=== PATIENT | male | born 1980 | race Caucasian/White ===

== ENCOUNTER 2021-03-17 09:32 | Outpatient (CLI) | payer OTHER, SELFPAY ==
--- NOTE | 2021-03-17 09:15 | DI.RAD_ITS ---
Exam(s) XR KNEE LT 3V AP,LAT,LISETTE EXAM: XR KNEE LT 3V AP,LAT,LISETTE CLINICAL HISTORY: knee pain. TECHNIQUE: 2D digital imaging was performed. COMPARISON: No exams were available for comparison FINDINGS: BONES: No acute fracture is present. No bony destructive lesion is seen. JOINTS: Minimal periarticular spurring the knee is normally aligned. No joint effusion is seen. SOFT TISSUE: Normal. IMPRESSION: Minimal degenerative changes. DATA REPOSITORY: RADIATION DOSE DELIVERED:
== END 2021-03-17 09:33 | disposition home or self-care (01) ==
LOC: DIORS 09:32
PROVIDERS: PCP Physician Assistant; Referring Provider Physician Assistant; Visit Provider Physician Assistant Surgical
DX: M25.562 Pain in left knee (principal)
CPT/HCPCS: 73562

== ENCOUNTER 2021-05-27 00:49 | Outpatient (CLI) | payer OTHER, SELFPAY ==
--- NOTE | 2021-05-27 07:00 | DI.MRI_ITS ---
Exam(s) MR LOWER JOINT LT WO EXAM: MR LOWER JOINT LT WO CLINICAL HISTORY: Acute meniscus tear lt knee, S83.242A TECHNIQUE: Multiplanar multisequence MRI of the left knee was performed. COMPARISON: CR XR KNEE LT 3V AP,LAT,LISETTE from 03/17/2021 FINDINGS: Plain films of the left knee performed 03/17/2021 reviewed. EFFUSION: There is a moderate-sized joint effusion.. There is no Friedman cyst in the medial popliteal fossa. MARROW:There is no evidence of fracture, bone contusion, nor osteochondral defects.. There are no si gnificant osseous lesions. PATELLOFEMORAL COMPARTMENT: The quadriceps tendon is intact. The patellar ligament is intact. There is no significant thinning of the retropatellar cartilage. No evidence of fissure nor signific ant chondral defect. No osteochondral defect at this level.There is no intraosseous signal to sugges t recent patellar dislocation. There are no patellar retinacular tears. CRUCIATE LIGAMENTS: The anterior cruciate ligament is intact.The posterior cruciate ligament is intac t. MEDIAL COMPARTMENT/MEDIAL MENISCUS: There is a complex tear of the medial meniscus.This involves pred ominantly the posterior horn but extends towards the anterior horn. There are both horizontal and ob lique components of the tear. The root is also involved. Tearing extends to the meniscocapsular elenita ction although there does not appear to be a significant tear of the MCL. There are mild degenerative changes in the hyaline cartilage of the medial condyle. There are no ost eochondral defects. No prominent subarticular bone edema. MEDIAL COLLATERAL LIGAMENT: Intact LATERAL COMPARTMENT/LATERAL MENISCUS: There is no evidence of lateral meniscal tear.There are no cindy dral defects, osteochondral defects, subarticular marrow edema, nor osteophytes evident. ILIOTIBIAL BAND: Intact LATERAL COLLATERAL LIGAMENT COMPLEX: The fibular collateral ligament is intact. The biceps femoris t endon is intact.There is significant fluid at the musculotendinous junction of the popliteus as well as some fluid within the popliteus tendon sheath but no high-grade tear. IMPRESSION: 1. There is complex tear of the medial meniscus as described above, predominantly involving the poste rior horn but extending towards the anterior horn. Mild degenerative changes are noted in the medial compartment. No osteophytes. No osteochondral defects there are no tears of the lateral meniscus a nd minimal degenerative changes in the lateral compartment. 2. Cruciate and collateral ligaments are intact although there does appear to be some fluid within th e musculotendinous junction and tendon sheath of the popliteus component of the lateral collateral li gament complex. Fibular collateral ligament itself as well as the biceps femorals component of the L CL complex are intact. MCL proper is intact. 3. Patellofemoral compartment appears unremarkable. 4. Moderate-sized joint effusion. No Friedman cyst. DATA REPOSITORY:
== END 2021-05-27 01:09 ==
PROVIDERS: PCP Physician Assistant; Visit Provider Student in an Organized Health Care Education/Training Program
DX: M25.562 Pain in left knee (principal); S83.232A Complex tear of medial meniscus, current injury, left knee, initial encounter; M25.462 Effusion, left knee; X58.XXXA Exposure to other specified factors, initial encounter
CPT/HCPCS: 73721

== ENCOUNTER 2021-06-12 02:06 | Outpatient (CLI) | payer OTHER, SELFPAY ==
[2021-06-12 16:52] LABS: COVID-19 PCR Negative (Negative)
[2021-06-13 11:43] LABS: Source Nasal/Nares
== END 2021-06-12 02:07 | disposition home or self-care (01) ==
LOC: LBO 02:06
PROVIDERS: PCP Physician Assistant; Visit Provider Student in an Organized Health Care Education/Training Program
DX: Z20.822 Contact with and (suspected) exposure to COVID-19 (principal); Z01.818 Encounter for other preprocedural examination
CPT/HCPCS: 87635

== ENCOUNTER 2021-07-15 02:27 | Outpatient (CLI) | payer OTHER, SELFPAY ==
[2021-07-15 13:09] LABS: Source Nasal/Nares
[2021-07-15 22:43] LABS: COVID-19 PCR Negative (Negative)
== END 2021-07-15 02:28 | disposition home or self-care (01) ==
PROVIDERS: PCP Physician Assistant; Visit Provider Student in an Organized Health Care Education/Training Program
DX: Z20.822 Contact with and (suspected) exposure to COVID-19 (principal)
CPT/HCPCS: 87635

== ENCOUNTER 2021-07-16 08:39 | Day surgery (SDC) | payer OTHER, SELFPAY ==
[2021-07-16] VITALS (7 sets, daily range): BP systolic 97–122; BP diastolic 60–79; PULSE 76–84; RESP 14–16; TEMP 36.5–36.7; O2SAT 96–98; BMI 31.5
[2021-07-16] MEDS: Lactated Ringers 1,000 ML 100 ML IV (09:31)
--- NOTE | 2021-07-16 10:12 | W.ANESPRE ---
General Info Date of Service Date Performed: 07/16/21 Height: 5 ft 10 in Weight: 99.6 kg Body Mass Index (BMI): 31.5 Surgical Procedure: Operation Date: 07/16/21 11:40 Proposed Procedure Side Surgeon p Knee Arthroscopy,Partial Medial Mensiectomy,any indicated meniscal, chondral and synovial surgery Left Albert Garcia MD Meds Allergies and Home Medications Allergies Allergy/AdvReac Type Severity Reaction Status Date / Time clindamycin AdvReac Intermediate rash Verified 07/16/21 09:02 Home Medication Medication Instructions Recorded dextroamphetamine 10 mg tablet 10 mg PO DAILY 03/17/21 dextroamphetamine 15 mg tablet 15 mg PO DAILY 03/17/21 loratadine 10 mg tablet (Allergy 10 mg PO DAILY 03/17/21 Relief (loratadine)) omeprazole 20 mg capsule,delayed 20 mg PO DAILY 03/17/21 release aspirin 81 mg tablet,delayed 81 mg PO DAILY 14 Days #14 tab 07/16/21 release naproxen 250 mg tablet 250 - 500 mg PO BID PRN #40 tab 07/16/21 oxycodone 5 mg tablet 5 - 10 mg PO Q4H PRN #18 tab MDD 07/16/21 30 mg Current Visit Medications: Current Medications Generic Name Dose Route Start Last Admin Trade Name Freq PRN Reason Stop Dose Admin Ringer's Solution 1,000 mls @ 100 mls/hr 07/16/21 06:00 07/16/21 09:31 IV 07/30/21 23:59 100 mls/hr INFUSION [place] Administration Cefazolin Sodium/Dextrose 2 gm in 50 mls @ 100 mls/hr 07/16/21 06:00 Ancef Duplex IVPB 07/16/21 23:59 PREOP [place] IV Miscellaneous Supplies 1 each 07/16/21 06:00 Iv Access IV 07/30/21 23:59 DIRECTED [place] Naproxen 250 - 500 mg 07/16/21 07:22 Naproxen 500 Mg Tab PO BID PRN PRN Oxycodone HCl 5 - 10 mg 07/16/21 07:22 Oxycodone 5 Mg Tab PO Q4H PRN PRN Sodium Chloride 0 ml 07/16/21 06:00 Normal Saline Flush 10 Ml Syr IV 07/30/21 23:59 PRN PRN Sodium Chloride 0 ml 07/16/21 06:00 Normal Saline 10 Ml Vial IJ 07/30/21 23:59 DIRECTED PRN Sterile Water 0 ml 07/16/21 06:00 Water,Injection,Sterile 10 Ml Vial IJ 07/30/21 23:59 DIRECTED PRN PFSH Active Problems Active Problems: Problem Status Onset Code Patellofemoral syndrome of left knee M22.2X2 Right lateral epicondylitis M77.11 Acute medial meniscus tear of left knee 05/10/21 S83.242A Medical History Medical History ADD (attention deficit disorder) Long-term current use of stimulant ADD (attention deficit disorder) Surgical History Surgical History (Updated 07/16/21 @ 09:03 by Tessie Kingsley) H/O: vasectomy History of carpal tunnel surgery of left wrist Tobacco Smoking/Tobacco Use Status: Current every day Tobacco Type: smokeless tobacco Alcohol Alcohol Intake: current Alcohol intake frequency: a few times a week Substance Use Substance use: Never Substance use type: does not use Vital Signs and Lab Results Vital Signs Most Recent Vital Signs in EMR: Most Recent Vital Signs Temp Pulse Resp BP Pulse Ox 36.6 C 84 16 112/77 98 07/16/21 08:54 07/16/21 08:54 07/16/21 08:54 07/16/21 08:54 07/16/21 08:54 Lab Results Blood Type / Crossmatch: No Data to Display Complete Blood Count: No Data to Display Complete Metabolic Panel: No Data to Display Liver Function Panel: No Data to Display Coagulation Panel: No Data to Display Cardiac Panel: No Data to Display Arterial Blood Gas: No Data to Display Venous Blood Gas: No Data to Display Pancreas Panel: No Data to Display Thyroid Panel: No Data to Display Infectious Disease: Coronavirus (COVID-19)(PCR) Negative (Negative) 07/15/21 08:58 07/15/21 Coronavirus 2019 Source Nasal/Nares 07/15/21 08:58 07/15/21 Blood Cultures: No Data to Display Toxicology Panel: No Data to Display Anesthesia Assessment and Plan Anesthesia History Personal History: Other Family History: No Family History of Anesthesia Complications Exercise Tolerance Exercise Tolerance: Metabolic Equivalents>4 Pertinent Negatives Pertinent Negatives: No Symptoms of GERD, No Major Cardiovascular Symptoms or Complaints, No Major Pulmonary Symptoms or Complaints and No History of CVA/TIA Cardiac & Pulmonary Exam Cardiac Exam: Normal S1/S2 Heart Sounds Pulmonary Exam: Clear Bilateral Breath Sounds Implantable Cardiac Device Does patient have a Pacemaker or an ICD?: No Airway Exam Known Difficult Airway: No Mallampati Class: 2 Mouth Opening: Normal (> 3cm) Thyromental Distance: Greater than 3 cm Neck Range of Motion: Full ROM Neck Circumference: Normal Teeth Condition: Normal Dentition ASA Classification ASA Score: ASA 2 Emergency Case?: No NPO Status NPO Status: NPO Clears >2 hours, Solids >8 hours Anesthesia Plan Resuscitation Status: Full Code Anesthesia Technique: Spinal Anesthesia Airway Planned: Natural Airway Monitors Used: Standard Monitors
--- NOTE | 2021-07-16 12:00 | ROE_ITS ---
Operative Note Operative Note DATE OF PROCEDURE: 07/16/21 PRE-OP DIAGNOSIS: Left knee 1. Medial meniscus tear 2. Synovitis POST-OP DIAGNOSIS: same PROCEDURE: Left knee 1. Partial medial meniscectomy, CPT #32906 2. Greater than 2 compartment synovectomy, CPT #30506: Medial gutter plica, intercondylar, and patellofemoral SURGEON: Albert Garcia CALENDERING SUPERVISOR: None None ANESTHESIA TYPE: Local By Surgeon and Spinal Refer to Anesthesia Record ESTIMATED BLOOD LOSS: 5 PATHOLOGY: none sent TOURNIQUET TIME: 0 COMPLICATIONS: None Patient was transported to: PACU Patient's condition: stable Indications: Please see complete medical record for details. Findings: Exam under anesthesia: Full range of motion, no instability Arthroscopic findings: Complex medial meniscus tear involving the posterior body of root junction and posterior horn to the root. Stable root. Stable body anterior horn. Fibrinous tissue. Not amenable to repair. Moderate medial gutter synovitis and plica. Moderate patellofemoral and intercondylar synovitis as well. No significant cartilage lesion medial, lateral, or patellofemoral compartment. Intact lateral meniscus. Intact ACL PCL. Procedure Description: In the operating room, genral anesthesia was induced. The patient was positioned supine on the operating room table. All bony prominences were well- padded. Preoperative antibiotics were administered. The knee was prepped and draped in the usual sterile fashion. The correct patient, procedure, and side of the procedure were all verified prior to incision. Exam under anesthesia was performed. 10 cc of 50-50 lidocaine and bupivacaine containing epinephrine was infiltrated about the planned anteromedial and anterolateral knee arthroscopy portals. The portals were established and a complete diagnostic arthroscopy was performed with relevant findings detailed above. The mechanical shaver was used to remove pathologic synovium from the medial, intercondylar, and patellofemoral compartments. The mechanical shaver was also used to excise a medial prominent synovial plical fold. Using a combination of hand instruments including meniscal biters and a power shaver and working through the anteromedial and anterolateral compartments the medial meniscus meniscus was debrided of all torn tissue to a stable margin. Care was taken to preserve as much meniscus tissue was possible. The meniscal remnant was probed and found to have a stable margin, stable root, and no other tears Under direct arthroscopic visualization an 18-gauge needle was passed into the knee from superolateral into the suprapatellar pouch. The knee was copiously irrigated with arthroscopic fluid until there was a clear effluent before being drained of all fluid. The anteromedial and anterolateral portals were closed in 3-0 Monocryl in a buried interrupted fashion. 20 cc of lidocaine and bupivacaine with epinephrine containing 4 mg of morphine was infiltrated into the knee through the previously placed needle. Mastisol, Steri-Strips, and 4 x 4 gauze were applied over the incisions followed by sterile soft roll. The knee was then wrapped gently with an ANTOINE comressive bandage. The patient awoke from anesthesia without complication and was transferred to the recovery room in a stable condition.
[2021-07-16] MEDS: ceFAZolin 2 GM/50 ML BAG IVPB (12:07)
[2021-07-16] MEDS: Bupivacaine 0.25% Pres-Free 30 ML VIAL (12:43)
[2021-07-16] MEDS: MORPHine 4 MG/ML SYR (12:44)
--- NOTE | 2021-07-16 13:17 | PDOC.DSDIS_ITS ---
Discharge Plan Disposition Patient Disposition: HOME Condition: Stable Discharge Details Reason For Visit: Left knee surgery Attending Provider: Albert Garcia Primary Care Provider: Anastasia Hill V Home Meds and New Rx's Prescriptions: New aspirin 81 mg tablet,delayed release (DR/EC) 81 mg PO DAILY 14 Days Qty: 14 0RF naproxen 250 mg tablet 250 - 500 mg PO BID PRNQty: 40 0RF Rx Instructions: take with a meal oxycodone 5 mg tablet 5 - 10 mg PO Q4H MDD 30 mg PRN (Reason: moderate to severe pain) Qty: 18 0RF Continued loratadine [Allergy Relief (loratadine)] 10 mg tablet 10 mg PO DAILY 0RF omeprazole 20 mg capsule,delayed release(DR/EC) 20 mg PO DAILY 0RF dextroamphetamine 10 mg tablet 10 mg PO DAILY 0RF dextroamphetamine 15 mg tablet 15 mg PO DAILY 0RF Discontinued ibuprofen 200 mg capsule 200 mg PO Q6H PRN0RF Discharge Instructions Additional Instructions: Surgery: Left knee arthroscopy with partial medial meniscectomy and synovectomy Activity: Weight-bearing as tolerated. Advance range of motion as comfort allows. Restore full extension as soon as possible. Elevation to minimize swelling and discomfort. No knee brace or crutches needed as soon as comfortable. Recommend avoiding sports, pivoting, and squatting for 6-8 weeks. A physical therapy prescription will be sent electronically to start in 2 to 3 weeks. Prescriptions: Aspirin 81 mg take 1 daily to prevent a blood clot for 14 days Naproxen 250 mg take 1-2 every 12 hours with a meal as needed for moderate pain Oxycodone 5 mg take 1-2 every 4-6 hours as needed for severe pain You may use [id number] Tylenol (acetaminophen) as needed for mild pain. These pain medications may be taken all at once or in different combinations as needed. Also, recommend Colace (docusate) as a stool softener as surgery and pain medicine cause constipation. Dressings: Leave dressing in place for 3 days. May then remove and leave open to air or cover incisions with Band-Aids. May shower after 5 days. Follow-up: 10-[address] Garcia Let us know right away if you develop any redness, drainage, fevers, chest pain, or trouble breathing. Do not drink alcohol or drive for at least 24 hours after anesthesia. Please call the office during business hours with any questions or concerns. Referrals: Albert Garcia MD [ [facility] STAFF PHYSICIAN] - Discharge Orders Discharge Orders: Discharge Order (Routine); Ordered 07/16/21 Ordered By: Albert Garcia DS: Diagnosis Discharge Diagnosis (1) Acute medial meniscus tear of left knee: Status: Acute (2) Patellofemoral syndrome of left knee: Status: Acute
--- NOTE | 2021-07-16 14:15 | W.ANESPOSTOP ---
Postoperative Evaluation Date, Time and Location Date Performed: 07/16/21 Time Performed: 14:15 Patient Location: Day Surgery Unit Vital Signs Most Recent Imported Vital Signs: Most Recent Vital Signs Temp Pulse Resp BP Pulse Ox 36.5 C 84 16 116/78 98 07/16/21 14:00 07/16/21 14:00 07/16/21 14:00 07/16/21 14:00 07/16/21 14:00 Pain Score Most Recent Pain Score: Most Recent Pain Score Pain Level 1 07/16/21 14:00 Assessment Mental Status: Awake (Alert & Oriented to Patient Baseline) Airway and Respiratory Function: Patent airway with normal (patient baseline) respiratory exam Cardiovascular Function: Hemodynamically Stable Hydration Status: Adequately Hydrated Nausea & Vomiting: No Nausea or Vomiting Pain: Pain is tolerable per patient Peripheral Nerve Block: Patient did not receive a nerve block
== END 2021-07-16 15:30 | disposition home or self-care (01) ==
PROVIDERS: PCP Physician Assistant; Visit Provider Student in an Organized Health Care Education/Training Program
PROC: (CPT 29870; principal; 2021-07-16 11:30)
DX: S83.242A Other tear of medial meniscus, current injury, left knee, initial encounter (principal); M25.862 Other specified joint disorders, left knee; M67.52 Plica syndrome, left knee; X50.3XXA Overexertion from repetitive movements, initial encounter; X50.1XXA Overexertion from prolonged static or awkward postures, initial encounter; Y99.0 Civilian activity done for income or pay; Z79.899 Other long term (current) drug therapy; F98.8 Other specified behavioral and emotional disorders with onset usually occurring in childhood and adolescence; M65.862 Other synovitis and tenosynovitis, left lower leg
CPT/HCPCS: 29876; 29881; J0690; J1100; J1885; J2250; J2270

== ENCOUNTER 2022-06-10 10:24 | Emergency (ER) | payer SELFPAY ==
[2022-06-10] VITALS (33 sets, daily range): BP systolic 100–127; BP diastolic 76–90; PULSE 70–114; RESP 15–19; TEMP 36.7–36.9; O2SAT 86–98
--- NOTE | 2022-06-10 10:45 | RT.EKG_ITS ---
APPROVED REPORT Exam: Resting ECG Reason for Exam: chest pain Patient Location: E HR:109 bpm ECG Measurements Heart Rate 109 AXIS MS 148 P 69 QRSd 86 QRS 26 QT 331 T 43 QTc 446 Conclusion Sinus tachycardia...rate> 99 Left atrial enlargement...P, P'>60mS, <-0.15mV V1
[2022-06-10 11:58] LABS: Abs Immature Grans 0.02 10^3/uL (0.0-0.06); Absolute Basophil Count 0.03 10^3/uL (0.0-0.2); Absolute Eosinophil Count 0.18 10^3/uL (0.0-0.7); Absolute Lymphocyte Count 1.53 10^3/uL (1.2-3.4); Absolute Monocyte Count 0.43 10^3/uL (0.1-0.8); Absolute Neutrophil Count 2.54 10^3/uL (1.2-6.7); Basophils % 0.6; Eosinophils % 3.8; HCT 42.1 % (40.0-50.0); HGB 14.4 g/dL (13.5-17.5); Immature Grans % 0.4; Lymphocytes % 32.3; MCH 30.7 pg (27.0-33.0); MCHC 34.2 % (32.0-36.0); MCV 90 fL (80-95); Monocytes % 9.1; Neutrophils % 53.8; Platelet Count 322 10^3/uL (130-400); RBC 4.69 10^6/uL (4.36-5.78); RDW 12.7 % (11.8-14.1); RDW-SD 41.9 fL; WBC 4.73 10^3/uL (4.4-10.8)
[2022-06-10] MEDS: LORazepam 0.5 MG TAB PO (12:13)
[2022-06-10 12:26] LABS: ALT 42 U/L (16-63); AST 28 U/L (15-37); Albumin 4.6 g/dL (3.4-5.0); Alkaline Phosphatase 76 U/L (46-116); Anion Gap 10.5 mmol/L (3-11); BUN 23 mg/dL (7-18); Bilirubin, Total 0.9 mg/dL (0.2-1.0); CO2 26.5 mmol/L (21.0-32.0); CREATININE 0.9 mg/dL (0.70-1.30); Calcium 9.2 mg/dL (8.5-10.1); Chloride 102 mmol/L (98-107); Estimated GFR 108.68 (mL/min/1.73m2); Glucose 109 mg/dL (74-106); Potassium 3.6 mmol/L (3.5-5.1); Sodium 139 mmol/L (136-145); Total Protein 7.4 g/dL (6.4-8.2); Troponin I < 50 ng/L (<or=60)
[2022-06-10 14:07] LABS: Troponin I < 50 ng/L (<or=60)
--- NOTE | 2022-06-10 14:45 | ED.GENADUL_ITS ---
Discharge Plan Disposition Patient Disposition: Home Discharge Details Clinical Impression: Atypical chest pain Primary Care Provider: Anastasia Hill V ED Provider: Radha Hutson Home Meds and New Rx's Prescriptions: Continued omeprazole 20 mg capsule,delayed release(DR/EC) 20 mg PO DAILY dextroamphetamine sulfate 10 mg tablet 10 mg PO DAILY dextroamphetamine sulfate 15 mg tablet 15 mg PO DAILY cetirizine 5 mg Tablet 5 mg PO 1XD Discharge Instructions Instructions: Chest Pain (ED) Additional Instructions: Please follow-up with primary care physician I have given you an additional tablet of Ativan, please take it if you need it You may wish to take half a milligram at a time as it may cause some drowsiness, do not drive for 8 hours after taking this medication Please return earlier should you have new or worsening complaints Stand Alone Forms: Work Release Referrals: Anastasia Hill V [Primary Care Provider] - 1 day Discharge Data Discharge Date/Time-TO BE ENTERED AT DEPARTURE: 06/10/22 15:11 Medical Decision Making This 42-year-old gentleman presents with chest pain, heart score 1 Chest x-ray without acute abnormality, PERC negative Repeat troponin and initial troponin negative, less suspicion for cardiac etiology of patient's complaints Feeling marked improvement with Ativan Remainder of labs do not show evidence of acute abnormality Return precautions reviewed and patient expressed understanding Encouraged to follow-up with primary care physician and tobacco cessation reviewed Discharge, pain. Very stable condition without acute appearing ekg, 2 negative troponins, essentially negative cardiac work-up This patient Medical Records Medical records reviewed: Yes I reviewed the patient's medical records. Lab Data Lab results reviewed: Yes I reviewed the patient's lab results. HPI General Date/Time Provider Initiated Documentation: 06/10/22 10:59 . 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 Patient states he felt fine prior to onset of symptoms and agitation. He denies any fever or chills. He denies any calf pain or swelling. Denies history of coagulopathy. Denies history of similar symptoms in the past. No early family history of early cardiac disease. Denies any calf pain or swelling, recent flights, surgeries, long drives,, alcohol use. Pt does vape tobacco. Related Data Home Medications Medication Instructions Recorded Confirmed dextroamphetamine sulfate 10 mg 10 mg PO DAILY 03/17/21 06/10/22 tablet dextroamphetamine sulfate 15 mg 15 mg PO DAILY 03/17/21 06/10/22 tablet omeprazole 20 mg capsule,delayed 20 mg PO DAILY 03/17/21 06/10/22 release cetirizine 5 mg tablet 5 mg PO 1XD 06/10/22 06/10/22 Allergies Allergy/AdvReac Type Severity Reaction Status Date / Time clindamycin AdvReac Intermediate rash Verified 06/10/22 13:00 General Stated Complaint: Anxiety RACQUEL: 3 PFSH All Active Problems (Updated 06/10/22 @ 14:52 by LUCAS Pena) Atypical chest pain (Acute) Patellar tendinitis, left knee (Acute) Right lateral epicondylitis (Acute) injection: 03/17/2021, 11/24/2021 Acute medial meniscus tear of left knee (Acute 05/10/21) Medical History (Updated 06/10/22 @ 14:52 by LUCAS Pena) ADD (attention deficit disorder) Long-term current use of stimulant ADD (attention deficit disorder) Patellofemoral syndrome of left knee Surgical History H/O: vasectomy History of carpal tunnel surgery of left wrist Social History Smoking/Tobacco Use Status: Current every day Tobacco Type: smokeless tobacco Smoking risk assessment performed?: Yes Alcohol Intake: current Alcohol Intake frequency: a few times a week Drug use: Never Substance use type: does not use Current gender identity: male Do you feel safe at home: Yes Do you feel safe in your relationship?: Yes Exam Const General: cooperative, comfortable and no acute distress Orientation: alert and oriented x3 Eyes Sclera: sclerae normal Resp Effort & Inspection: normal respiratory effort Auscultation: clear to auscultation bilaterally Cardio Rate: regular rate Rhythm: regular rhythm Heart Sounds: no murmurs GI Inspection: normal to inspection Skin General skin exam: no rashes or lesions noted Neuro General: patient alert and patient oriented x3 Extrem Other: no calf swelling Course Vital Signs Vital signs: Vital Signs Temperature 36.9 C 06/10/22 10:47 Pulse 114 H 06/10/22 10:47 Respiratory Rate 18 06/10/22 10:47 Blood Pressure 126/88 06/10/22 10:47 Pulse Oximetry 98 06/10/22 10:47 Temperature 36.7 C 06/10/22 13:09 Temperature Source Temporal Artery Scan 06/10/22 13:09 Pulse 95 H 06/10/22 13:09 Respiratory Rate 19 06/10/22 13:09 Respiratory Effort Normal, Non-Labored 06/10/22 11:54 Respiratory Depth Normal 06/10/22 11:34 Respiratory Pattern Normal 06/10/22 11:34 Blood Pressure 125/90 06/10/22 13:09 Blood Pressure Position Sitting 06/10/22 10:47 Pulse Oximetry 97 06/10/22 13:09 Oxygen Delivery Method Room Air 06/10/22 13:09 Oxygen Flow Rate 0 06/10/22 13:09 Pain Level 0 06/10/22 13:09 Lab/Test Results Lab/Test Results: Laboratory Tests Range/Units 06/10/22 06/10/22 06/10/22 11:48 11:48 13:45 WBC (4.4-10.8) 10^3/uL 4.73 RBC (4.36-5.78) 10^6/uL 4.69 Hgb (13.5-17.5) g/dL 14.4 Hct (40.0-50.0) % 42.1 MCV (80-95) fL 90 MCH (27.0-33.0) pg 30.7 MCHC (32.0-36.0) % 34.2 RDW (11.8-14.1) % 12.7 Plt Count (130-400) 10^3/uL 322 MPV (8.0-11.0) fL 9.0 Immature Gran % 0.4 Neutrophils % 53.8 Lymphocytes % 32.3 Monocytes % 9.1 Eosinophils % 3.8 Basophils % 0.6 Nucleated RBC % (0.0-0.3) % 0.0 Absolute Neutrophils (1.2-6.7) 10^3/uL 2.54 Absolute Lymphocytes (1.2-3.4) 10^3/uL 1.53 Absolute Monocytes (0.1-0.8) 10^3/uL 0.43 Absolute Eosinophils (0.0-0.7) 10^3/uL 0.18 Absolute Basophils (0.0-0.2) 10^3/uL 0.03 Sodium (136-145) mmol/L 139 Potassium (3.5-5.1) mmol/L 3.6 Chloride (98-107) mmol/L 102 Carbon Dioxide (21.0-32.0) mmol/L 26.5 Anion Gap (3-11) mmol/L 10.5 BUN (7-18) mg/dL 23 H Creatinine (0.70-1.30) mg/dL 0.9 Est GFR (CKD-EPI 2020) (mL/min/1.73m2) 108.68 Glucose (74-106) mg/dL 109 H Calcium (8.5-10.1) mg/dL 9.2 Total Bilirubin (0.2-1.0) mg/dL 0.9 AST (15-37) U/L 28 ALT (16-63) U/L 42 Alkaline Phosphatase (46-116) U/L 76 Troponin I (<or=60) ng/L < 50 < 50 Total Protein (6.4-8.2) g/dL 7.4 Albumin (3.4-5.0) g/dL 4.6
[2022-06-10] MEDS: LORazepam 1 MG TAB PO (14:59)
== END 2022-06-10 15:11 | disposition home or self-care (01) ==
PROVIDERS: Emergency Provider Physician Assistant; PCP Physician Assistant
DX: R07.89 Other chest pain (principal)
CPT/HCPCS: 80053; 93005; 99283; 84484; 85025; 93010; 99284

== ENCOUNTER 2022-07-14 10:59 | Outpatient (CLI) | payer OTHER, SELFPAY ==
--- NOTE | 2022-07-14 10:53 | DI.RAD_ITS ---
Exam(s) XR ELBOW RT COMPLETE EXAM: XR ELBOW RT COMPLETE CLINICAL HISTORY: R elbow pain. TECHNIQUE: 2D digital imaging was performed of the left elbow. Three images were obtained. AP, lat eral and oblique views were obtained. COMPARISON: No exams were available for comparison FINDINGS: BONES: No acute fracture is present. No bony destructive lesion is seen. JOINTS: The elbow is normally aligned. No joint effusion is seen. SOFT TISSUE: Normal. IMPRESSION: Unremarkable radiographs of the right elbow. DATA REPOSITORY: RADIATION DOSE DELIVERED:
== END 2022-07-14 11:00 | disposition home or self-care (01) ==
LOC: DIORS 10:59
PROVIDERS: PCP Physician Assistant; Referring Provider Physician Assistant; Visit Provider Student in an Organized Health Care Education/Training Program
DX: M77.11 Lateral epicondylitis, right elbow (principal); M25.521 Pain in right elbow
CPT/HCPCS: 73080

== ENCOUNTER 2022-08-12 00:47 | Outpatient (CLI) | payer OTHER, SELFPAY ==
--- NOTE | 2022-08-12 07:45 | DI.MRI_ITS ---
Exam(s) MR LOWER JOINT LT WO EXAM: MR LOWER JOINT LT WO CLINICAL HISTORY: ? RECURRENT MEDIAL MENISCUS TEAR, S83.242A, ACUTE MEDIAL MENISCUS TEAR. TECHNIQUE: Multiplanar multisequence MRI was performed. COMPARISON: MR MR LOWER JOINT LT WO from 05/27/2021 FINDINGS: BONES: There is no fracture or contusion pattern. JOINTS: A small joint effusion is present. Articular cartilage: Patellofemoral joint: Articular cartilage is unremarkable. Medial femoral tibial joint: Mild cartilage thinning. No focal defect. Minimal osteophytes. Lateral femoral tibial joint: Articular cartilage is unremarkable. TENDONS: Extensor mechanism: Unremarkable. Medial retinaculum: Unremarkable. Lateral retinaculum: Unremarkable. Popliteus: Unremarkable. MUSCLES: Unremarkable. MENISCI: The medial meniscus shows postsurgical changes in the body and posterior horn. No superimpo sed tear is seen. The lateral meniscus is unremarkable. SOFT TISSUES: Unremarkable. LIGAMENTS: Anterior Cruciate: Unremarkable. Posterior Cruciate: Unremarkable. Medial Collateral:Unremarkable. Lateral Collateral: Unremarkable. OTHER: Small synovial cyst versus ganglion seen at the posterior aspect of the proximal tibial fibula r joint. IMPRESSION: Post surgical changes of the body and posterior horn of the medial meniscus. No evidence of superimp osed acute tear. DATA REPOSITORY:
== END 2022-08-12 01:07 ==
PROVIDERS: PCP Physician Assistant; Visit Provider Student in an Organized Health Care Education/Training Program
DX: M25.562 Pain in left knee (principal); M25.462 Effusion, left knee; M25.862 Other specified joint disorders, left knee; Z98.890 Other specified postprocedural states
CPT/HCPCS: 73721

== ENCOUNTER 2023-03-23 13:13 | Outpatient (REF) | payer OTHER, SELFPAY ==
[2023-03-23 14:05] LABS: Sperm(Post-Vasectomy) Absent
== END 2023-03-23 13:14 | disposition home or self-care (01) ==
LOC: LBN 13:13
PROVIDERS: PCP Physician Assistant; Visit Provider Urology
DX: Z30.09 Encounter for other general counseling and advice on contraception (principal)
CPT/HCPCS: 89321

== ENCOUNTER 2023-05-17 11:43 | Outpatient (CLI) | payer OTHER, SELFPAY ==
--- NOTE | 2023-05-17 11:00 | DI.RAD_ITS ---
Exam(s) XR KNEE LT 2V AP,LAT EXAM: XR KNEE LT 2V AP,LAT CLINICAL HISTORY: knee pain. TECHNIQUE: 2D digital imaging was performed. COMPARISON: CR XR KNEE LT 3V AP,LAT,LISETTE from 03/17/2021 FINDINGS: Two views performed with [id number] and lateral There is no evidence of fracture. No significant joint space narrowing although there appears to be a small marginal osteophyte off the outer of the medial femoral condyle. There is a joint effusion noted in the suprapatellar bursa. IMPRESSION: Mild degenerative changes in the medial compartment. Joint effusion. DATA REPOSITORY: RADIATION DOSE DELIVERED:
== END 2023-05-17 11:44 | disposition home or self-care (01) ==
LOC: DIORS 11:44
PROVIDERS: PCP Physician Assistant; Visit Provider Physician Assistant
DX: M17.12 Unilateral primary osteoarthritis, left knee (principal)
CPT/HCPCS: 73560

== ENCOUNTER 2024-01-20 00:30 | Outpatient (CLI) | payer OTHER, SELFPAY ==
--- NOTE | 2024-01-20 06:30 | DI.MRI_ITS ---
Exam(s) MR LOWER JOINT LT WO EXAM: MR LOWER JOINT LT WO CLINICAL HISTORY: L KNEE PAIN,arthritis,acute medial meniscus tear,m17.12,[id number]. TECHNIQUE: Multiplanar multisequence MRI was performed. COMPARISON: MR MR LOWER JOINT LT WO from 08/12/2022 CR XR KNEE LT 2V AP,LAT from 05/17/2023 FINDINGS: BONES: There is no fracture or contusion pattern. Minimal edema now present in the medial tibial pl ateau not associated with the articular surface. JOINTS: A minimal joint effusion is present. Articular cartilage: Patellofemoral joint: Articular cartilage is unremarkable. Medial femoral tibial joint: Articular cartilage is unremarkable. Lateral femoral tibial joint: Articular cartilage is unremarkable. LIGAMENTS: Anterior Cruciate: Unremarkable. Posterior Cruciate: Unremarkable. Medial Collateral:Unremarkable. Lateral Collateral ligament complex: Unremarkable. TENDONS: Extensor mechanism: Unremarkable. Medial retinaculum: Unremarkable. Lateral retinaculum: Unremarkable. Popliteus: Unremarkable. MENISCI: The medial meniscus shows stable postsurgical changes. The lateral meniscus is unremarkable. MUSCLES: Unremarkable. SOFT TISSUES: Small ganglion cyst again noted posterior to the proximal tibial fibular joint. IMPRESSION: Stable postsurgical changes of the medial meniscus. No evidence of acute meniscal tear. DATA REPOSITORY:
== END 2024-01-20 00:50 ==
LOC: DI 00:31
PROVIDERS: PCP Physician Assistant; Visit Provider Student in an Organized Health Care Education/Training Program
DX: S83.242A Other tear of medial meniscus, current injury, left knee, initial encounter; X58.XXXA Exposure to other specified factors, initial encounter; Z98.890 Other specified postprocedural states
CPT/HCPCS: 73721

== ENCOUNTER 2024-09-19 13:16 | Outpatient (CLI) | payer OTHER, SELFPAY ==
--- NOTE | 2024-09-19 13:00 | DI.RAD_ITS ---
Exam(s) XR KNEE LT 2V AP,LAT EXAM: XR KNEE LT 2V AP,LAT CLINICAL HISTORY: LEFT KNEE PAIN. TECHNIQUE: 2D digital imaging was performed. Three views. COMPARISON: CR XR KNEE LT 2V AP,LAT from 05/17/2023 MR MR LOWER JOINT LT WO from 01/20/2024 FINDINGS: BONES: No acute fracture is present. No bony destructive lesion is seen. JOINTS: There is mild narrowing of the medial femoral tibial joint space and mild periarticular spurr ing. The slight widening of the lateral femoral tibial joint space. There is minimal spurring at th e articular aspect of the patella. No joint effusion is seen. SOFT TISSUE: Normal. 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 DATA REPOSITORY: RADIATION DOSE DELIVERED:
== END 2024-09-19 13:17 | disposition home or self-care (01) ==
LOC: DIORS 13:16
PROVIDERS: PCP Physician Assistant; Visit Provider Student in an Organized Health Care Education/Training Program
DX: M17.12 Unilateral primary osteoarthritis, left knee (principal)
CPT/HCPCS: 73560

== ENCOUNTER 2024-10-23 02:10 | Outpatient (CLI) | payer OTHER, SELFPAY ==
--- NOTE | 2024-10-23 13:00 | DI.MRI_ITS ---
Exam(s) MR LOWER JOINT LT WO EXAM: MR LOWER JOINT LT WO CLINICAL HISTORY: L KNEE PAIN,ARTHRITIS LT KNEE,M17.12. TECHNIQUE: Multiplanar multisequence MRI was performed. COMPARISON: MR MR LOWER JOINT LT WO from 08/12/2022 MR MR LOWER JOINT LT WO from 01/20/2024 CR XR KNEE LT 2V AP,LAT from 09/19/2024 FINDINGS: BONES: There is no fracture or contusion pattern. JOINTS: A small joint effusion is present. Articular cartilage: Patellofemoral joint: Articular cartilage is unremarkable. Medial femoral tibial joint: Articular cartilage is is mildly thinned. No focal defects. Lateral femoral tibial joint: Articular cartilage is unremarkable. LIGAMENTS/TENDONS: Anterior Cruciate: Unremarkable. Posterior Cruciate: Unremarkable. Medial Collateral:Unremarkable. Lateral Collateral ligament complex: Unremarkable. Extensor mechanism: Unremarkable. Medial retinaculum: Unremarkable. Lateral retinaculum: Unremarkable. Popliteus: Unremarkable. MENISCI: The medial meniscus shows stable postoperative changes of the posterior horn and body. The lateral meniscus is unremarkable. MUSCLES: Unremarkable. SOFT TISSUES: Small synovial cyst or ganglion again noted near the posterior proximal tibial fibular joint. IMPRESSION: Stable postoperative changes of the posterior horn and body of the medial meniscus. Stable small synovial cyst versus ganglion at the proximal tibial fibular joint. DATA REPOSITORY:
== END 2024-10-23 02:30 ==
LOC: DI 02:10
PROVIDERS: PCP Physician Assistant; Visit Provider Student in an Organized Health Care Education/Training Program
DX: M17.12 Unilateral primary osteoarthritis, left knee (principal)
CPT/HCPCS: 73721